=== PATIENT | male | born 1995 | race Caucasian/White ===

== ENCOUNTER 2017-01-07 04:19 | Emergency (ER) | payer OTHER ==
[~2017-01-07] VITALS: Ht 167.6 cm; Wt 127.0 kg
[2017-01-07 05:02] VITALS: BP 132/70
== END 2017-01-07 05:02 | disposition home or self-care (01) ==
LOC: EME 04:19 → EXP 04:19
DX: T15.02XA Foreign body in cornea, left eye, initial encounter (principal); W20.8XXA Other cause of strike by thrown, projected or falling object, initial encounter; Y99.0 Civilian activity done for income or pay
CPT/HCPCS: 99281; 99284

== ENCOUNTER 2017-01-07 07:32 | Emergency (ER) | payer OTHER ==
[~2017-01-07] VITALS: Ht 167.6 cm; Wt 122.9 kg
[2017-01-07 08:34] VITALS: BP 132/85
== END 2017-01-07 08:37 | disposition home or self-care (01) ==
LOC: EME 07:32
PROC: 08CTXZZ Extirpation of Matter from Left Conjunctiva, External Approach (ICD-10-PCS; principal; 2017-01-07)
DX: T15.12XA Foreign body in conjunctival sac, left eye, initial encounter (principal); X58.XXXA Exposure to other specified factors, initial encounter; Y93.89 Activity, other specified; Y99.0 Civilian activity done for income or pay; Z72.0 Tobacco use
CPT/HCPCS: 99281; 99284

== ENCOUNTER 2017-04-13 04:00 | Emergency (ER) | payer OTHER ==
[~2017-04-13] VITALS: Ht 175.3 cm; Wt 118.0 kg
[2017-04-13 07:44] VITALS: BP 145/88
== END 2017-04-13 07:44 | disposition home or self-care (01) ==
LOC: EME 04:00
PROC: 2W3MX1Z Immobilization of Left Lower Extremity using Splint (ICD-10-PCS; principal; 2017-04-13)
DX: S90.32XA Contusion of left foot, initial encounter (principal); W22.8XXA Striking against or struck by other objects, initial encounter; F17.200 Nicotine dependence, unspecified, uncomplicated
CPT/HCPCS: 73610; 73630; 99281; 99284